=== PATIENT | male | born 1945 | race Caucasian/White ===

== ENCOUNTER 2016-12-08 19:02 | Observation (INO) | payer OTHER, MEDICARE ==
[2016-12-08] MEDS ORDERED: ASPIRIN 81 MG TABLET, CHEWABLE PO ONE (19:18)
--- NOTE | 2016-12-08 19:19 | ER Document Report ---
ED General - General Stated Complaint: LEFT ARM PAIN Mode of Arrival: Ambulatory Information source: Patient Notes: 71-year-old male history of triple bypass last year presents with complaints of chest pain shortness breath diaphoresis that started today. Patient notes yesterday he was working under a car did have some achiness in his left shoulder at that time, achiness started again today, radiate to his neck across his chest. Patient became diaphoretic sweating, took one nitroglycerin which resolved his chest pain. Patient denies any other concerns. Skin has started to smoke again instructed on smoking cessation TRAVEL OUTSIDE OF THE [place] IN LAST 30 DAYS: No - HPI Onset: This afternoon Onset/Duration: Sudden Quality of pain: Achy Severity: Mild Pain Level: 1 Associated symptoms: Body/muscle aches, Chest pain, Shortness of breath Exacerbated by: Denies Relieved by: Denies Similar symptoms previously: Yes Recently seen / treated by doctor: Yes Past Medical History - Social History Smoking Status: Current Every Day Smoker Cigarette use (# per day): Yes Chew tobacco use (# tins/day): No Smoking Education Provided: Yes - Patient counselled regarding cessation for 4 minutes Family History: Reviewed & Not Pertinent Review of Systems - Review of Systems Notes: REVIEW OF SYSTEMS: CONSTITUTIONAL : Denies fever, chills, or sweats. Denies recent illness. EENT: Denies eye, ear, throat, or mouth pain or symptoms. Denies nasal or sinus congestion or discharge. Denies throat, tongue, or mouth swelling or difficulty swallowing. CARDIOVASCULAR: Admits to chest pain rating to the arm pain. RESPIRATORY: Admits to shortness of breath GASTROINTESTINAL: Denies abdominal pain or distention. Denies nausea, vomiting , or diarrhea. Denies blood in vomitus, stools, or per rectum. Denies black, tarry stools. Denies constipation. GENITOURINARY: Denies difficulty urinating, painful urination, burning, frequency, blood in urine, or discharge. MUSCULOSKELETAL: Denies back or neck pain or stiffness. Denies joint pain or swelling. SKIN: Denies rash, lesions or sores. HEMATOLOGIC : Denies easy bruising or bleeding. LYMPHATIC: Denies swollen, enlarged glands. NEUROLOGICAL: Denies confusion or altered mental status. Denies passing out or loss of consciousness. Denies dizziness or lightheadedness. Denies headache. Denies weakness or paralysis or loss of use of either side. Denies problems with gait or speech. Denies sensory loss, numbness, or tingling. Denies seizures. PSYCHIATRIC: Denies anxiety or stress. Denies depression, suicidal ideation, or homicidal ideation. ALL OTHER SYSTEMS REVIEWED AND NEGATIVE. Dictation was performed using [employer] voice recognition software PHYSICAL EXAMINATION: GENERAL: Well-appearing, well-nourished and in no acute distress. HEAD: Atraumatic, normocephalic. EYES: Pupils equal round and reactive to light, extraocular movements intact, sclera anicteric, conjunctiva are normal. ENT: Nares patent, oropharynx clear without exudates. Moist mucous membranes. NECK: Normal range of motion, supple without lymphadenopathy LUNGS: Breath sounds clear to auscultation bilaterally and equal. No wheezes rales or rhonchi. HEART: Regular rate and rhythm without murmurs ABDOMEN: Soft, nontender, nondistended abdomen. No guarding, no rebound. No masses appreciated. Musculoskeletal: Normal range of motion, no pitting or edema. No cyanosis. NEUROLOGICAL: Cranial nerves grossly intact. Normal speech, normal gait. Normal sensory, motor exams PSYCH: Normal mood, normal affect. SKIN: Warm, Dry, normal turgor, no rashes or lesions noted. Physical Exam - Vital signs Vitals: Pulse Ox 100 12/08/16 19:18 Course - Re-evaluation Re-evalutation: 12/08/16 23:03 Patient notes a history of chronic kidney disease, EKG does note some peaked T waves with some inverted T wave in V2, Vladimir had a cardiac enzymes were negative , Dr. Grayson requests a second set of cardiac enzymes prior to admission - Vital Signs Vital signs: Temp Pulse Resp BP Pulse Ox 97.7 F 55 L 15 144/89 H 100 12/08/16 20:37 12/08/16 20:37 12/08/16 20:37 12/08/16 20:37 12/08/16 20:37 - Laboratory Result Diagrams: 12/08/16 20:30 12/08/16 20:30 Laboratory results interpreted by me: 12/08/16 12/08/16 20:30 20:30 RDW 14.2 H BUN 49 H Creatinine 2.36 H Est GFR ( Amer) 33 L Est GFR (Non-Af Amer) 28 L Total Protein 8.6 H - EKG Interpretation by Me EKG shows normal: Sinus rhythm, [place], Intervals, QRS Complexes, ST-T Waves - Peaked T waves in V3 through V6 and inverted T wave in V2 When compared to previous EKG there are: Previous EKG unavailable, Other Discharge - Discharge Clinical Impression: Chest pain Qualifiers: Chest pain type: unspecified Qualified Code(s): R07.9 - Chest pain, unspecified Disposition: ADMITTED OBSERVATION Admitting Provider: Hospitalist Unit Admitted: Telemetry
--- NOTE | 2016-12-08 19:26 | EKG REPORT ---
SEVERITY:- BORDERLINE ECG - SINUS RHYTHM PROBABLE LEFT ATRIAL ABNORMALITY : Confirmed by: Kirby Topete 08-Dec-2016 19:26:01
[2016-12-08 20:45] LABS: ABSOLUTE BASOPHILS # (AUTO) 0.1 10^3/uL (0.0-0.2); ABSOLUTE EOSINOPHILS # (AUTO) 0.2 10^3/uL (0.0-0.6); ABSOLUTE LYMPHOCYTES (AUTO) 1.5 10^3/uL (0.5-4.7); ABSOLUTE MONOCYTES (AUTO) 0.6 10^3/uL (0.1-1.4); ABSOLUTE NEUT (AUTO) 7.3 10^3/uL (1.7-8.2); BASOPHILS % (AUTO) 0.6 % (0-2); EOSINOPHILS % (AUTO) 1.6 % (0-6); HEMATOCRIT 40.6 % (37.9-51.0); HEMOGLOBIN 13.5 g/dL (13.5-17.0); HGB HCT DIFFERENCE -0.1; LYMPHOCYTES % (AUTO) 15.8 % (13-45); MEAN CORPUSCULAR HEMOGLOBIN 29.3 pg (27.0-33.4); MEAN CORPUSCULAR HGB CONC 33.2 g/dL (32.0-36.0); MEAN CORPUSCULAR VOLUME 88 fl (80-97); MONOCYTES % (AUTO) 5.9 % (3-13); RED BLOOD COUNT 4.61 10^6/uL (4.35-5.55); RED CELL DISTRIBUTION WIDTH 14.2 % (11.5-14.0); SEGMENTED NEUTROPHILS % (AUTO) 76.1 % (42-78); WHITE BLOOD COUNT 9.5 10^3/uL (4.0-10.5)
[2016-12-08 21:01] LABS: ALANINE AMINOTRANSFERASE 25 U/L (21-72); ALBUMIN 4.8 g/dL (3.5-5.0); ALKALINE PHOSPHATASE 73 U/L (38-126); ANION GAP 14 (5-19); ASPARTATE AMINO TRANSFERASE 22 U/L (17-59); BILIRUBIN,TOTAL 0.6 mg/dL (0.2-1.3); BLOOD UREA NITROGEN 49 mg/dL (7-20); CALCIUM 9.8 mg/dL (8.4-10.2); CARBON DIOXIDE 24 mmol/L (22-30); CHLORIDE 104 mmol/L (98-107); CREATINE KINASE 117 U/L (55-170); CREATININE RESULT 2.36 mg/dL (0.52-1.25); GLUCOSE 97 mg/dL (75-110); POTASSIUM 4.8 mmol/L (3.6-5.0); SODIUM 142.4 mmol/L (137-145); TOTAL PROTEIN 8.6 g/dL (6.3-8.2)
[2016-12-08 21:13] LABS: CREATINE KINASE MB 2.35 ng/mL (<4.55); TROPONIN I 0.027 ng/mL
[2016-12-08] MEDS ORDERED: BENAZEPRIL HCL 20 MG TABLET PO ONE (23:00)
[2016-12-08] MEDS ORDERED: DIAZEPAM 5 MG TABLET PO PRN (23:34)
[2016-12-08] MEDS ORDERED: MORPHINE SULFATE 10 MG/ML INJ IV PRN (23:34)
[2016-12-08] MEDS ORDERED: NITROGLYCERIN 0.4 MG/TAB 25 TAB/BOTTLE SL PRN (23:34)
[2016-12-08] MEDS ORDERED: ATORVASTATIN CALCIUM 80 MG TABLET PO ONE (23:45)
[2016-12-09] MEDS ORDERED: BENAZEPRIL HCL 20 MG TABLET ONE (00:09)
[2016-12-09 05:07] LABS: ABSOLUTE EOSINOPHILS # (AUTO) 0.2 10^3/uL (0.0-0.6); ABSOLUTE LYMPHOCYTES (AUTO) 2.6 10^3/uL (0.5-4.7); ABSOLUTE MONOCYTES (AUTO) 0.5 10^3/uL (0.1-1.4); BASOPHILS % (AUTO) 0.7 % (0-2); EOSINOPHILS % (AUTO) 2.3 % (0-6); HEMOGLOBIN 13.3 g/dL (13.5-17.0); HGB HCT DIFFERENCE -0.1; LYMPHOCYTES % (AUTO) 35.5 % (13-45); MEAN CORPUSCULAR HEMOGLOBIN 29.5 pg (27.0-33.4); MEAN CORPUSCULAR HGB CONC 33.3 g/dL (32.0-36.0); MEAN CORPUSCULAR VOLUME 89 fl (80-97); MONOCYTES % (AUTO) 6.6 % (3-13); RED CELL DISTRIBUTION WIDTH 14.4 % (11.5-14.0); SEGMENTED NEUTROPHILS % (AUTO) 54.9 % (42-78); WHITE BLOOD COUNT 7.3 10^3/uL (4.0-10.5)
[2016-12-09 05:24] LABS: ANION GAP 12 (5-19); BLOOD UREA NITROGEN 45 mg/dL (7-20); CALCIUM 9.7 mg/dL (8.4-10.2); CARBON DIOXIDE 25 mmol/L (22-30); CHLORIDE 103 mmol/L (98-107); CHOLESTEROL 177.59 mg/dL (0-200); CREATINE KINASE 104 U/L (55-170); CREATININE RESULT 2.07 mg/dL (0.52-1.25); Direct HDL 40 mg/dL (>40); GLUCOSE 86 mg/dL (75-110); POTASSIUM 4.3 mmol/L (3.6-5.0); SODIUM 140.4 mmol/L (137-145); TRIGLYCERIDES 125 mg/dL (<150)
[2016-12-09 05:40] LABS: DIRECT LDL 105 mg/dL (<100)
[2016-12-09 05:44] LABS: CREATINE KINASE MB 2.46 ng/mL (<4.55); TROPONIN I 0.083 ng/mL
--- NOTE | 2016-12-09 06:14 | PDOC H&P ---
History of Present Illness Admission Date/PCP: 12/08/16 23:34 Patient complains of: Chest pain History of Present Illness: PADMINI GHOSH is a 71 year old male with a past medical history of coronary artery disease status post three-vessel bypass grafting approximately 14 months ago, persistent tobacco dependence, stage 3 chronic kidney disease and hypertension. He been in his usual state of health until approximately 48 hours prior to presentation developing chest pain nausea after exertion while working to repair a car, symptoms resolved after approximately an hour however had a second episode of chest pain 6 hours prior to presentation that was increased intensity 4-5 retrosternal and left shoulder as well as left arm associated with nausea and diaphoresis. In the emergency room he has an unremarkable workup and is pain-free and referred to the hospitalist for admission. Past Medical History Cardiac Medical History: Reports: Hypertension Pulmonary Medical History: Reports: Chronic Obstructive Pulmonary Disease (COPD) Renal/ Medical History: Reports: Chronic Kidney Disease Psychiatric Medical History: Reports: Tobacco Dependency Past Surgical History Past Surgical History: Reports: Coronary Artery Bypass Graft Social History Smoking Status: Current Every Day Smoker Cigarettes Packs Per Day: 1 Frequency of Alcohol Use: None Drugs: None - Advance Directive Resuscitation Status: Full Code Family History Family History: CAD, Hypertension Parental Family History Reviewed: Yes Children Family History Reviewed: Yes Sibling(s) Family History Reviewed.: Yes Review of Systems Constitutional: ABSENT: chills, fever(s), headache(s), weight gain, weight loss Eyes: ABSENT: visual disturbances Ears: ABSENT: hearing changes Cardiovascular: ABSENT: chest pain, dyspnea on exertion, edema, orthropnea, palpitations Respiratory: ABSENT: cough, hemoptysis Gastrointestinal: ABSENT: abdominal pain, constipation, diarrhea, hematemesis, hematochezia, nausea, vomiting Genitourinary: ABSENT: dysuria, hematuria Musculoskeletal: ABSENT: joint swelling Integumentary: ABSENT: rash, wounds Neurological: ABSENT: abnormal gait, abnormal speech, confusion, dizziness, focal weakness, syncope Psychiatric: ABSENT: anxiety, depression, homidical ideation, suicidal ideation Endocrine: ABSENT: cold intolerance, heat intolerance, polydipsia, polyuria Hematologic/Lymphatic: ABSENT: easy bleeding, easy bruising Physical Exam Vital Signs: Temp Pulse Resp BP Pulse Ox 97.7 F 58 L 13 148/82 H 97 12/09/16 03:51 12/09/16 03:51 12/09/16 03:51 12/09/16 03:51 12/09/16 03:51 General appearance: PRESENT: no acute distress, well-developed, well-nourished Head exam: PRESENT: atraumatic, normocephalic Eye exam: PRESENT: conjunctiva pink, EOMI, PERRLA. ABSENT: scleral icterus Ear exam: PRESENT: normal external ear exam Mouth exam: PRESENT: moist, tongue midline Neck exam: ABSENT: carotid bruit, JVD, lymphadenopathy, thyromegaly Respiratory exam: PRESENT: crackles, prolonged expiratory phas, symmetrical, unlabored. ABSENT: accessory muscle use, chest wall tenderness, rales, rhonchi , wheezes Cardiovascular exam: PRESENT: RRR. ABSENT: diastolic murmur, rubs, systolic murmur Pulses: PRESENT: normal dorsalis pedis pul Vascular exam: PRESENT: normal capillary refill GI/Abdominal exam: PRESENT: normal bowel sounds, soft. ABSENT: distended, guarding, mass, organolmegaly, rebound, tenderness Rectal exam: PRESENT: deferred Extremities exam: PRESENT: full ROM. ABSENT: calf tenderness, clubbing, pedal edema Neurological exam: PRESENT: alert, awake, oriented to person, oriented to place , oriented to time, oriented to situation, CN II-XII grossly intact. ABSENT: motor sensory deficit Psychiatric exam: PRESENT: appropriate affect, normal mood. ABSENT: homicidal ideation, suicidal ideation Skin exam: PRESENT: dry, intact, warm. ABSENT: cyanosis, rash Results Laboratory Results: 12/09/16 04:28 12/09/16 04:28 12/09/16 12/09/16 04:28 04:28 WBC 7.3 RBC 4.50 Hgb 13.3 L Hct 40.0 MCV 89 MCH 29.5 MCHC 33.3 RDW 14.4 H Plt Count 218 Seg Neutrophils % 54.9 Lymphocytes % 35.5 Monocytes % 6.6 Eosinophils % 2.3 Basophils % 0.7 Absolute Neutrophils 4.0 Absolute Lymphocytes 2.6 Absolute Monocytes 0.5 Absolute Eosinophils 0.2 Absolute Basophils 0.0 Sodium 140.4 Potassium 4.3 Chloride 103 Carbon Dioxide 25 Anion Gap 12 BUN 45 H Creatinine 2.07 H Est GFR ( Amer) 39 L Est GFR (Non-Af Amer) 32 L Glucose 86 Calcium 9.7 Triglycerides 125 Cholesterol 177.59 LDL Cholesterol Direct 105 H VLDL Cholesterol 25.0 HDL Cholesterol 40 12/09/16 12/09/16 04:27 04:28 Creatine Kinase 104 CK-MB (CK-2) 2.46 Troponin I 0.083 Impressions: Chest X-Ray 12/08/16 19:18 IMPRESSION: COPD. NO ACUTE RADIOGRAPHIC FINDING IN THE CHEST. Assessment & Plan - Diagnosis (1) Chest pain Qualifiers: Chest pain type: unspecified Qualified Code(s): R07.9 - Chest pain, unspecified Is this a current diagnosis for this admission?: YesPlan: Patient's history strongly suggests unstable angina evolving over the last 48 hours, kidded by his history fortunately he is pain-free I'll observe him on a monitored bed with a chest pain care set and symptomatically management reevaluation of cardiac enzymes and risk factors for coronary artery disease, obtaining a Cardiolite stress test if rules out (2) Coronary artery disease Is this a current diagnosis for this admission?: YesPlan: Please see #1 (3) Stage III chronic kidney disease Is this a current diagnosis for this admission?: YesPlan: Avoid nephrotoxic meds and doses reevaluation of chemistry (4) Tobacco dependence Is this a current diagnosis for this admission?: YesPlan: Tobacco Dependence patient received tobacco cessation counseling and offered nicotine replacement options - Time Time Spent: 50 to 70 Minutes
[2016-12-09] MEDS ORDERED: METHADONE HCL 10 MG TABLET PO ONE (09:45)
[2016-12-09] MEDS ORDERED: BENAZEPRIL HCL 20 MG TABLET PO SCH (10:00)
[2016-12-09 11:52] LABS: CREATINE KINASE MB 2.66 ng/mL (<4.55); TROPONIN I 0.075 ng/mL
[2016-12-09 13:51] VITALS: BP 133/81
[2016-12-09] MEDS ORDERED: METHADONE HCL 10 MG TABLET PO SCH (15:00)
--- NOTE | 2016-12-09 16:39 | PDOC DISCHARGE SUMMARY ---
General - Admit/Disc Date/PCP Admission Date/Primary Care Provider: 12/08/16 23:34 Discharge Date: 12/09/16 - Discharge Diagnosis (1) Chest pain Is this a current diagnosis for this admission?: YesSummary: Pain ruled out for acute coronary syndrome. Most likely musculoskeletal. Will follow up with his hosiery mender if it reoccurs (2) Coronary artery disease Is this a current diagnosis for this admission?: YesSummary: Continue current medications (3) Stage III chronic kidney disease Is this a current diagnosis for this admission?: YesSummary: Currently stable (4) Tobacco dependence Is this a current diagnosis for this admission?: YesSummary: Counseled - Additional Information Resuscitation Status: Full Code Discharge Diet: Cardiac Discharge Activity: Activity As Tolerated, Balance Activity w/Rest Home Medications: Aspirin [Aspirin EC] 81 mg PO DAILY 12/09/16 Bupropion HCl [Wellbutrin 100 mg Tablet] 100 mg PO Q12 12/09/16 Clopidogrel Bisulfate [Plavix 75 mg Tablet] 75 mg PO DAILY 12/09/16 Diltiazem HCl [Diltiazem ER] 120 mg PO DAILY 12/09/16 Levothyroxine Sodium [Synthroid] 50 mcg PO DAILY 12/09/16 Methadone HCl [Dolophine 10 mg Tablet] 10 mg PO Q6 12/09/16 Metoprolol Tartrate [Lopressor 50 mg Tablet] 25 mg PO Q12 12/09/16 Omeprazole 20 mg PO DAILY 12/09/16 History of Present Illness Patient complains of: Left arm and shoulder pain History of Present Illness: PADMINI GHOSH is a 71 year old male with past medical history of coronary artery disease status post three-vessel bypass grafting presently 4 months ago, persistent tobacco dependence, stage III chronic kidney disease and hypertension. He presented to [facility] after he began having left arm pain and heaviness radiated up into his shoulders after he was working on a car for several hours underneath it. States it was not his typical anginal pain he had prior to his bypass surgery. He did have some diaphoresis and nausea associated with the pain. He states the pain eventually subsided somewhat. He then took 1 sublingual nitroglycerin with complete resolution of pain prior to his arrival here. EKG and initial troponin are negative for ischemia. He was referred to the hospitalist service for admission. Hospital Course Hospital Course: Patient was admitted to telemetry and observed. He had serial troponins drawn which were all negative for acute coronary syndrome. He has had no further episodes of pain. We are unable to do a stress test today due to renovations to our stress lab. Patient does not wish to stay another night. We therefore feel safe for him to be discharged and follow-up should he have recurrence of his symptoms with his hosiery mender. He has had no typical angina pains with exertion since his surgery. Physical Exam Vital Signs: Temp Pulse Resp BP Pulse Ox 97.7 F 58 L 9 L 133/81 H 97 12/09/16 03:51 12/09/16 03:51 12/09/16 13:03 12/09/16 13:03 12/09/16 13:03 Intake & Output 12/08/16 12/09/16 12/10/16 06:59 06:59 06:59 Output Total 400 Balance -400 Weight 84.822 kg General appearance: PRESENT: no acute distress, well-developed, well-nourished Head exam: PRESENT: atraumatic, normocephalic Eye exam: PRESENT: conjunctiva pink, EOMI, PERRLA. ABSENT: scleral icterus Ear exam: PRESENT: normal external ear exam Mouth exam: PRESENT: moist, tongue midline Neck exam: ABSENT: carotid bruit, JVD, lymphadenopathy, thyromegaly Respiratory exam: PRESENT: clear to auscultation jaime. ABSENT: rales, rhonchi, wheezes Cardiovascular exam: PRESENT: RRR. ABSENT: diastolic murmur, rubs, systolic murmur Pulses: PRESENT: normal dorsalis pedis pul Vascular exam: PRESENT: normal capillary refill GI/Abdominal exam: PRESENT: normal bowel sounds, soft. ABSENT: distended, guarding, mass, organolmegaly, rebound, tenderness Rectal exam: PRESENT: deferred Extremities exam: PRESENT: full ROM. ABSENT: calf tenderness, clubbing, pedal edema Neurological exam: PRESENT: alert, awake, oriented to person, oriented to place , oriented to time, oriented to situation, CN II-XII grossly intact. ABSENT: motor sensory deficit Psychiatric exam: PRESENT: appropriate affect, normal mood. ABSENT: homicidal ideation, suicidal ideation Skin exam: PRESENT: dry, intact, warm. ABSENT: cyanosis, rash Results Laboratory Results: 12/09/16 04:28 12/09/16 04:28 12/09/16 12/09/16 04:28 04:28 WBC 7.3 RBC 4.50 Hgb 13.3 L Hct 40.0 MCV 89 MCH 29.5 MCHC 33.3 RDW 14.4 H Plt Count 218 Seg Neutrophils % 54.9 Lymphocytes % 35.5 Monocytes % 6.6 Eosinophils % 2.3 Basophils % 0.7 Absolute Neutrophils 4.0 Absolute Lymphocytes 2.6 Absolute Monocytes 0.5 Absolute Eosinophils 0.2 Absolute Basophils 0.0 Sodium 140.4 Potassium 4.3 Chloride 103 Carbon Dioxide 25 Anion Gap 12 BUN 45 H Creatinine 2.07 H Est GFR ( Amer) 39 L Est GFR (Non-Af Amer) 32 L Glucose 86 Calcium 9.7 Triglycerides 125 Cholesterol 177.59 LDL Cholesterol Direct 105 H VLDL Cholesterol 25.0 HDL Cholesterol 40 12/09/16 12/09/16 12/09/16 04:27 04:28 10:43 Creatine Kinase 104 CK-MB (CK-2) 2.46 2.66 Troponin I 0.083 0.075 Impressions: Chest X-Ray 12/08/16 19:18 IMPRESSION: COPD. NO ACUTE RADIOGRAPHIC FINDING IN THE CHEST. Qualifiers PATEINT BEING DISCHARGED WITH ANY OF THE FOLLOWING DIAGNOSIS?: No Plan Discharge Plan: Home with sister Time Spent: Less than 30 Minutes
[2016-12-09] MEDS ORDERED: ATORVASTATIN CALCIUM 80 MG TABLET PO SCH (22:00)
== END 2016-12-09 13:30 | disposition home or self-care (01) ==
LOC: ER 19:02 → EH 22:26 → UNDOADMOB 22:26 → EH 23:34
PROVIDERS: ADMIT Internal Medicine; ATTEND Internal Medicine
DX: R07.9 Chest pain, unspecified (principal); I25.10 Atherosclerotic heart disease of native coronary artery without angina pectoris; Z95.1 Presence of aortocoronary bypass graft; I12.9 Hypertensive chronic kidney disease with stage 1 through stage 4 chronic kidney disease, or unspecified chronic kidney disease; N18.3 Chronic kidney disease, stage 3 (moderate); J44.9 Chronic obstructive pulmonary disease, unspecified; Z79.82 Long term (current) use of aspirin; Z79.899 Other long term (current) drug therapy; F17.210 Nicotine dependence, cigarettes, uncomplicated; Z82.49 Family history of ischemic heart disease and other diseases of the circulatory system
CPT/HCPCS: 93005; 99285; 36415 ×2; 82553 ×2; 82550 ×2; 85025 ×2; 80048; 80053; 84484 ×2; 80061; 71010; 93010; G0378; J3490

== ENCOUNTER → 2018-04-06 | Outpatient (CLI) | payer OTHER, MEDICARE ==
--- NOTE | 2018-04-06 19:59 | EKG REPORT ---
SEVERITY:- NORMAL ECG - SINUS RHYTHM : Confirmed by: Louise Stokes MD 06-Apr-2018 19:58:38
== END ==
LOC: OD 12:13
PROVIDERS: ATTEND Physician Assistant
DX: G89.4 Chronic pain syndrome (principal); Z79.891 Long term (current) use of opiate analgesic
CPT/HCPCS: 36415; 80358; 93005; 93010

== ENCOUNTER 2020-02-23 09:25 | Observation (INO) | payer MEDICARE, OTHER ==
--- NOTE | 2020-02-23 09:35 | ER Document Report ---
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 He states he used last Friday night. According to the patient he had meth in his pocket but he is not using it. He is alert oriented respirations regular nonlabored speaking in full sentences. Patient is accompanied by police and in handcuffs. Patient is very agitated. He is cooperative answering questions. He does have a history of CHF blood pressure and peripheral neuropathy. He states he also has some kidney failure but not complete. He has had a carotid endarterectomy, 2 hernia surgeries, and a triple bypass and CHF. I have greeted and performed a rapid initial assessment of this patient. A comprehensive ED assessment and evaluation of the patient, analysis of test results and completion of medical decision making process will be conducted by an additional ED providers. TRAVEL OUTSIDE OF THE [place] IN LAST 30 DAYS: No - Related Data Allergies/Adverse Reactions: No Known Allergies Allergy (Verified 02/23/20 09:29) Past Medical History - Past Medical History Cardiac Medical History: Reports: Hx Hypertension Pulmonary Medical History: Reports: Hx COPD Past Surgical History: Reports: Hx Coronary Artery Bypass Graft Doctor's Discharge - Discharge Referrals: CARI FUNES PA-C [Primary Care Provider] - Follow up as needed
[2020-02-23 10:51] LABS: ABSOLUTE BASOPHILS # (AUTO) 0.1 10^3/uL (0.0-0.2); ABSOLUTE EOSINOPHILS # (AUTO) 0.1 10^3/uL (0.0-0.6); ABSOLUTE LYMPHOCYTES (AUTO) 1.3 10^3/uL (0.5-4.7); ABSOLUTE MONOCYTES (AUTO) 0.5 10^3/uL (0.1-1.4); ABSOLUTE NEUT (AUTO) 5.3 10^3/uL (1.7-8.2); BASOPHILS % (AUTO) 0.8 % (0-2); EOSINOPHILS % (AUTO) 0.8 % (0-6); HEMATOCRIT 37.6 % (37.9-51.0); LYMPHOCYTES % (AUTO) 18.4 % (13-45); MEAN CORPUSCULAR HEMOGLOBIN 29.4 pg (27.0-33.4); MEAN CORPUSCULAR HGB CONC 34.5 g/dL (32.0-36.0); MEAN CORPUSCULAR VOLUME 85 fl (80-97); MONOCYTES % (AUTO) 7.5 % (3-13); PLATELET COUNT 361 10^3/uL (150-450); RED BLOOD COUNT 4.41 10^6/uL (4.35-5.55); RED CELL DISTRIBUTION WIDTH 15.4 % (11.5-14.0); SEGMENTED NEUTROPHILS % (AUTO) 72.5 % (42-78); TOTAL CELLS COUNTED % (AUTO) 100 %; WHITE BLOOD COUNT 7.3 10^3/uL (4.0-10.5)
[2020-02-23 10:58] LABS: ALBUMIN 3.3 g/dL (3.5-5.0); ALKALINE PHOSPHATASE 131 U/L (38-126); ASPARTATE AMINO TRANSFERASE 32 U/L (17-59); BILIRUBIN,TOTAL 0.8 mg/dL (0.2-1.3); BLOOD UREA NITROGEN 23 mg/dL (7-20); CALCIUM 8.7 mg/dL (8.4-10.2); GLUCOSE 116 mg/dL (75-110); POTASSIUM 3.7 mmol/L (3.6-5.0); TOTAL PROTEIN 7.3 g/dL (6.3-8.2)
[2020-02-23 10:59] LABS: ACETAMINOPHEN < 10 ug/mL (10-30); ALCOHOL < 10 mg/dL (NONE DETECTED); SALICYLATE < 1.0 mg/dL (2.0-20.0)
[2020-02-23 11:02] LABS: CARBON DIOXIDE 30 mmol/L (22-30); CHLORIDE 100 mmol/L (98-107)
[2020-02-23 11:03] LABS: ANION GAP 4 (5-19)
[2020-02-23] MEDS ORDERED: NORMAL SALINE 1000 ML 1,000 ML IV ONE (11:13)
[2020-02-23] MEDS ORDERED: ONDANSETRON HCL INJ/PF 4 MG/2 ML SDV IV ONE (11:13)
[2020-02-23] MEDS ORDERED: CLONIDINE HCL 0.1 MG TABLET PO ONE (11:13)
[2020-02-23 12:00] LABS: APPEARANCE,URINE CLEAR; BILIRUBIN,URINE NEGATIVE (NEGATIVE); COLOR,URINE YELLOW; GLUCOSE, URINE 50 mg/dL (NEGATIVE); KETONES,URINE NEGATIVE (NEGATIVE); LEUKOCYTE ESTERASE,URINE NEGATIVE (NEGATIVE); NITRITE,URINE NEGATIVE (NEGATIVE); PROTEIN,URINE >=500 mg/dL (NEGATIVE); UROBILINOGEN,URINE NEGATIVE mg/dL (<2.0)
--- NOTE | 2020-02-23 12:11 | RADIOLOGY REPORT (SQ) ---
EXAM DESCRIPTION: CHEST SINGLE VIEW IMAGES COMPLETED DATE/TIME: 02/23/2020 11:44 am REASON FOR STUDY: SOB COMPARISON: 08/14/2007 EXAM PARAMETERS: NUMBER OF VIEWS: One view. TECHNIQUE: Single frontal radiographic view of the chest acquired. RADIATION DOSE: NA LIMITATIONS: None. FINDINGS: LUNGS AND PLEURA: Emphysematous and chronic interstitial changes, stable. No focal airspa ce disease, pleural effusion or pneumothorax. MEDIASTINUM AND HILAR STRUCTURES: Stable. HEART AND VASCULAR STRUCTURES: Enlarged, stable. Evidence prior sternotomy and CABG. Mild central v ascular congestion. BONES: No acute findings. Sternotomy changes. HARDWARE: None in the chest. OTHER: No other significant finding. IMPRESSION: Stable chronic interstitial changes without evidence of acute cardiopulmonary process. Enlarged cardiac silhouette with central vascular congestion. Prior CABG. TECHNICAL DOCUMENTATION: JOB ID: [id number] [employer]- All Rights Reserved Reading location - IP/workstation name: [email or web address]
[2020-02-23 12:17] LABS: URINE AMPHETAMINES SCREEN NEGATIVE; URINE BARBITURATES SCREEN NEGATIVE; URINE BENZODIAZEPINES SCREEN NEGATIVE; URINE COCAINE SCREEN NEGATIVE; URINE MARIJUANA (THC) SCREEN NEGATIVE; URINE METHADONE SCREEN NEGATIVE; URINE PHENCYCLIDINE SCREEN NEGATIVE
[2020-02-23 12:28] LABS: TROPONIN I 0.064 ng/mL
[2020-02-23] MEDS ORDERED: METOPROLOL TARTRATE 25 MG TABLET PO ONE (12:35)
--- NOTE | 2020-02-23 13:32 | ER Document Report ---
Entered by JAN MARROQUIN SCRIBE 02/23/20 1034 Acting as scribe for:LARRY GONZALEZ DO ED General - General Chief Complaint: High Blood Pressure Stated Complaint: BLOOD PRESSURE ISSUE/DETOXING Time Seen by Provider: 02/23/20 09:31 Mode of Arrival: Wheelchair Information source: Patient Notes: This 75 year old male patient presents to the emergency department today from the [facility]dc in custody of the [facility]'s department today for complaints of hypertensive urgency along with heroin withdrawal. Patient states that he had been "clean for 30 years" from heroin until about x4 months ago, stating that he started using again after being "thrown out of pain management". Patient states that since yesterday he has been having leg cramps, nausea, "shortness of breath at night", and difficulty sleeping. He was incarcerated two days ago. Patient is supposed be taking blood pressure medication but he has not been doing so for the last several months. Patient states he does not know what medication he is supposed to be taking. Patient denies a history of alcohol abuse. TRAVEL OUTSIDE OF THE [place] IN LAST 30 DAYS: No - Related Data Allergies/Adverse Reactions: acetaminophen [From Tylenol] Allergy (Verified 02/23/20 10:30) pentazocine [From Talwin] Allergy (Verified 02/23/20 10:30) Past Medical History - General Information source: Patient, Law Enforcement - Social History Smoking Status: Current Every Day Smoker Cigarette use (# per day): Yes Chew tobacco use (# tins/day): No Drug Abuse: Heroin, Prescription drugs Lives with: Other - Incarcerated Family History: Reviewed & Not Pertinent, CAD, Hypertension Patient has suicidal ideation: No Patient has homicidal ideation: No - Past Medical History Cardiac Medical History: Reports: Hx Congestive Heart Failure, Hx Hypertension Pulmonary Medical History: Reports: Hx COPD Past Surgical History: Reports: Hx Coronary Artery Bypass Graft Review of Systems - Review of Systems Constitutional: No symptoms reported EENT: No symptoms reported Cardiovascular: See HPI, Other - elevated blood pressure Respiratory: See HPI, Short of breath Gastrointestinal: See HPI, Diarrhea, Nausea Genitourinary: No symptoms reported Male Genitourinary: No symptoms reported Musculoskeletal: See HPI, Muscle pain, Muscle stiffness Skin: No symptoms reported Hematologic/Lymphatic: No symptoms reported Neurological/Psychological: No symptoms reported -: Yes All other systems reviewed and negative Physical Exam - Vital signs Vitals: Temp Pulse Resp BP Pulse Ox 97.5 F 80 20 212/110 H 97 02/23/20 09:35 02/23/20 09:35 02/23/20 09:35 02/23/20 09:35 02/23/20 09:35 Interpretation: Hypertensive - General General appearance: Alert In distress: None Notes: Drowsy, chronically ill-appearing. Disheveled. - Respiratory Respiratory status: No respiratory distress Breath sounds: Rales - At bases, mild - Cardiovascular Rhythm: Regular Heart sounds: Normal auscultation Murmur: No - Abdominal Inspection: Normal Distension: No distension Bowel sounds: Normal Tenderness: Nontender Organomegaly: No organomegaly - Extremities General upper extremity: Normal inspection, Normal ROM General lower extremity: Normal inspection, Normal ROM - Neurological Neuro grossly intact: Yes Orientation: AAOx4 Gale Coma Scale Eye Opening: To Voice Gale Coma Scale Verbal: Oriented Hay Coma Scale Motor: Obeys Commands Gale Coma Scale Total: 14 - Psychological Associated symptoms: Normal affect, Normal mood Course - Re-evaluation Re-evalutation: 02/23/20 14:03 Patient is a 75-year-old male who is brought in for concern of opiate withdrawal, but more concerning is his blood pressure of 200s over 100s and complaints of orthopnea and dyspnea. Patient has not been taking his m edications over the past 5 to 6 months. He has a history of heart failure. BNP is elevated to 56,000 and chest x-ray consistent with vascular congestion. Patient does not have close follow-up with a primary and hesitate sending him back to fdc in the state that he is in as I feel that he will worsen. Discussed with the hospitalist will admit the patient to telemetry observation. He has been given clonidine for blood pressure and withdrawal symptoms, Zofran for nausea, and metoprolol 25 mg p.o. here in the emergency department. Patient is agreeable to this plan. Stable at the time of admission. - Vital Signs Vital signs: Temp Pulse Resp BP Pulse Ox 97.5 F 80 34 H 221/114 H 94 02/23/20 09:35 02/23/20 09:35 02/23/20 12:01 02/23/20 12:01 02/23/20 12:01 - Laboratory Result Diagrams: 02/23/20 10:27 02/23/20 10:27 Laboratory results interpreted by me: 02/23/20 02/23/20 02/23/20 10:27 10:27 10:27 Hgb 13.0 L Hct 37.6 L RDW 15.4 H Sodium 133.6 L Anion Gap 4 L BUN 23 H Creatinine 1.58 H Est GFR ( Amer) 52 L Est GFR (MDRD) Non-Af 43 L Glucose 116 H Alkaline Phosphatase 131 H NT-Pro-B Natriuret Pep 06126 H Albumin 3.3 L Urine Protein Urine Glucose (UA) Urine Blood Salicylates < 1.0 L Acetaminophen < 10 L 02/23/20 11:15 Hgb Hct RDW Sodium Anion Gap BUN Creatinine Est GFR ( Amer) Est GFR (MDRD) Non-Af Glucose Alkaline Phosphatase NT-Pro-B Natriuret Pep Albumin Urine Protein >=500 H Urine Glucose (UA) 50 H Urine Blood SMALL H Salicylates Acetaminophen Discharge - Discharge Clinical Impression: CHF exacerbation Qualifiers: Heart failure type: unspecified Qualified Code(s): I50.9 - Heart failure, unspecified Condition: Stable Disposition: ADMITTED OBSERVATION Admitting Provider: Torri (Hospitalist) Unit Admitted: Telemetry I personally performed the services described in the documentation, reviewed and edited the documentation which was dictated to the scribe in my presence, and it accurately records my words and actions.
[2020-02-23] MEDS ORDERED: IPRATROPIUM/ALBUTEROL 0.5-2.5 MG/3 ML AMPUL NEB PRN (14:37)
[2020-02-23] MEDS ORDERED: ONDANSETRON HCL INJ/PF 4 MG/2 ML SDV IV PRN (14:37)
[2020-02-23] MEDS ORDERED: ONDANSETRON 4 MG TAB.RAPDIS PO PRN (14:37)
--- NOTE | 2020-02-23 16:01 | PDOC H&P ---
History of Present Illness Admission Date/PCP: 02/23/20 14:00 History of Present Illness: PADMINI GHOSH is a 75 year old male with past medical history significant for CHF, CKD 3B, HTN, history of [place] status post CABG x3, tobacco abuse, heroin abuse last used Friday who presents with 1 day history of shortness of breath and generalized weakness, found to have markedly elevated blood pressures in the 240s over 100s at the fci and was sent to ED for further evaluation. He denies any chest pain, visual changes, abdominal pain, nausea/vomiting. He states he has stopped taking his medications for many months but he recently had a new PCP appointment that was canceled due to coronavirus. He was arrested 2 days ago for heroin use/possession among other things. He states he is also had a right carotid endarterectomy in the past and notes that he does not take Plavix anymore. BNP on admission is 53,000, chest x-ray showed central vascular congestion. For some reason he was given a 1 L normal saline bolus in the ER which probably made his blood pressure worse. He was then given a dose of Lasix. He is a very poor historian when it comes to his medications and does not remember the specific agents or the dose for the most part. Admitted to observation. Can probably go back to fci tomorrow. Patient is a long-term heroin addict who was fired by his methadone clinic last year due to his use of a fentanyl patch given to him by a friend. He last used heroin 2 days prior to admission and he would likely benefit from going back to the methadone clinic for treatment. Past Medical History Cardiac Medical History: Reports: Congestive Heart Failure, Myocardial Infarction, Hypertension Pulmonary Medical History: Reports: Chronic Obstructive Pulmonary Disease (COPD) Endocrine Medical History: Reports: Hypothyroidism Renal/ Medical History: Reports: Chronic Kidney Disease Psychiatric Medical History: Reports: Substance Abuse, Tobacco Dependency Past Surgical History Past Surgical History: Reports: Cardiac Catheterization, Carotid Endarterectomy, Coronary Artery Bypass Graft, Herniorrhaphy Social History Information Source: Patient, Emergency Med Personnel, [facility] Records Lives with: Alone, Other - Incarcerated Smoking Status: Current Every Day Smoker Electronic Cigarette use?: No Frequency of Alcohol Use: None Drugs: Heroin Hx Prescription Drug Abuse: Yes - Advance Directive Resuscitation Status: Full Code Surrogate healthcare decision maker:: Sister: Kristi Lazaro Family History Family History: Reviewed & Not Pertinent, CAD, Hypertension, Malignancy Parental Family History Reviewed: Yes Children Family History Reviewed: Yes Sibling(s) Family History Reviewed.: Yes Medication/Allergy Home Medications: Albuterol Sulfate [Proair Hfa Inhalation Aerosol 8.5 gm Mdi] 1 puff IH Q4HP PRN 02/23/20 Aspirin [Ecotrin 81 mg EC Tablet] 81 mg PO DAILY 02/23/20 Clonidine HCl [Catapres 0.1 mg Tablet] 0.1 mg PO BIDP PRN 02/23/20 Clopidogrel Bisulfate [Plavix 75 mg Tablet] 75 mg PO DAILY 02/23/20 Diltiazem HCl [Cardizem Cd 120 mg Capsule] 120 mg PO DAILY 02/23/20 Furosemide [Lasix 20 mg Tablet] 20 mg PO QAM 02/23/20 Levothyroxine Sodium [Synthroid 0.05 mg Tablet] 0.05 mg PO Q6AM 02/23/20 Metoprolol Tartrate [Lopressor 25 mg Tablet] 25 mg PO Q12 02/23/20 Omeprazole Magnesium [Prilosec Otc] 20 mg PO DAILY 02/23/20 Allergies/Adverse Reactions: acetaminophen [From Tylenol] Allergy (Verified 02/23/20 10:30) pentazocine [From Talwin] Allergy (Verified 02/23/20 10:30) Review of Systems All systems: reviewed and no additional remarkable complaints except as stated - Per HPI, otherwise negative Physical Exam Vital Signs: Temp Pulse Resp BP Pulse Ox 97.5 F 80 28 H 188/91 H 98 02/23/20 09:35 02/23/20 09:35 02/23/20 15:01 02/23/20 15:01 02/23/20 15:01 Intake & Output 02/22/20 02/23/20 02/24/20 06:59 06:59 06:59 Intake Total 1000 Balance 1000 Weight 56.8 kg General appearance: PRESENT: no acute distress, well-developed, well-nourished Head exam: PRESENT: atraumatic, normocephalic Eye exam: PRESENT: conjunctiva pink Mouth exam: PRESENT: moist Teeth exam: PRESENT: edentulous Respiratory exam: PRESENT: clear to auscultation jaime. ABSENT: rales, rhonchi, wheezes Cardiovascular exam: PRESENT: RRR. ABSENT: diastolic murmur, rubs, systolic murmur GI/Abdominal exam: PRESENT: normal bowel sounds, soft. ABSENT: distended, guarding, mass, organolmegaly, rebound, tenderness Rectal exam: PRESENT: deferred Extremities exam: ABSENT: pedal edema Musculoskeletal exam: PRESENT: ambulatory Neurological exam: PRESENT: alert, awake, oriented to person, oriented to place, oriented to time, oriented to situation Psychiatric exam: PRESENT: appropriate affect, normal mood Skin exam: PRESENT: dry, intact, warm Results Laboratory Results: 02/23/20 10:27 02/23/20 10:27 02/23/20 02/23/20 02/23/20 10:27 10:27 10:27 WBC 7.3 RBC 4.41 Hgb 13.0 L Hct 37.6 L MCV 85 MCH 29.4 MCHC 34.5 RDW 15.4 H Plt Count 361 Seg Neutrophils % 72.5 Sodium 133.6 L Potassium 3.7 Chloride 100 Carbon Dioxide 30 Anion Gap 4 L BUN 23 H Creatinine 1.58 H Est GFR ( Amer) 52 L Glucose 116 H Calcium 8.7 Total Bilirubin 0.8 AST 32 Alkaline Phosphatase 131 H Total Protein 7.3 Albumin 3.3 L TSH 1.55 Urine Color Urine Appearance Urine pH Ur Specific [place] Urine Protein Urine Glucose (UA) Urine Ketones Urine Blood Urine Nitrite Ur Leukocyte Esterase Urine WBC (Auto) Urine RBC (Auto) 02/23/20 11:15 WBC RBC Hgb Hct MCV MCH MCHC RDW Plt Count Seg Neutrophils % Sodium Potassium Chloride Carbon Dioxide Anion Gap BUN Creatinine Est GFR ( Amer) Glucose Calcium Total Bilirubin AST Alkaline Phosphatase Total Protein Albumin TSH Urine Color YELLOW Urine Appearance CLEAR Urine pH 7.0 Ur Specific [place] 1.010 Urine Protein >=500 H Urine Glucose (UA) 50 H Urine Ketones NEGATIVE Urine Blood SMALL H Urine Nitrite NEGATIVE Ur Leukocyte Esterase NEGATIVE Urine WBC (Auto) 0 Urine RBC (Auto) 2 02/23/20 10:27 Troponin I 0.064 NT-Pro-B Natriuret Pep 89334 H Impressions: Chest X-Ray 02/23/20 00:00 IMPRESSION: Stable chronic interstitial changes without evidence of acute cardiopulmonary process. Enlarged cardiac silhouette with central vascular congestion. Prior CABG. Assessment and Plan - Diagnosis (1) CHF exacerbation Qualifiers: Heart failure type: unspecified Qualified Code(s): I50.9 - Heart failure, unspecified Is this a current diagnosis for this admission?: Yes Plan: Not clinically volume overloaded on exam, short of breath on admission Chest x-ray showed central vascular congestion BNP 53,000, troponin minimally elevated likely due to CKD, denies chest pain Echocardiogram ordered IV Lasix Will need to be started on beta-poonam, YARI inhibitor, aspirin, statin prior to discharge (2) Hypertensive urgency Is this a current diagnosis for this admission?: Yes Plan: Off all medications for many months We will restart home medications gradually to achieve a controlled drop in blood pressure over the next 24 hours Restarted Lasix, diltiazem, metoprolol (3) Heroin abuse Is this a current diagnosis for this admission?: Yes Plan: Arrested by police for drug possession and use and he is currently incarcerated Last time using heroin was 2 to 3 days [employer] Not in acute withdrawal Counseled on cessation, needs referral back to methadone clinic outpatient (4) Carotid artery stenosis Is this a current diagnosis for this admission?: Yes Plan: Status post right carotid endarterectomy at the same time he had his CABG Aspirin restarted Per patient he does not take Plavix anymore as he was taken off it by 1 of his physicians Has not seen vascular surgery in quite a while, needs follow-up with them o utpatient May want to consider looking for renal artery stenosis if blood pressures refractory to multiple medications at high doses (5) COPD (chronic obstructive pulmonary disease) Is this a current diagnosis for this admission?: Yes Plan: Not in exacerbation Counseled on tobacco cessation As needed gregorio tay (6) Stage III chronic kidney disease Is this a current diagnosis for this admission?: Yes Plan: Baseline creatinine approximately 1.5-2, already at baseline on admission (7) Protein-calorie malnutrition, severe Is this a current diagnosis for this admission?: Yes Plan: Likely due to longstanding drug abuse (8) History of coronary artery bypass graft x 3 Is this a current diagnosis for this admission?: Yes (9) Hypertension Is this a current diagnosis for this admission?: Yes (10) Tobacco abuse Is this a current diagnosis for this admission?: Yes - Time Time Spent with patient: 35 or more minutes Medications reviewed and adjusted accordingly: Yes Anticipated discharge: Other - [facility] Within: within 48 hours
--- NOTE | 2020-02-23 16:02 | ADVANCED CARE ---
- Diagnosis (1) CHF exacerbation Diagnosis Current: Yes (2) Hypertensive urgency Diagnosis Current: Yes (3) Heroin abuse Diagnosis Current: Yes (4) Carotid artery stenosis Diagnosis Current: Yes (5) COPD (chronic obstructive pulmonary disease) Diagnosis Current: Yes (6) Stage III chronic kidney disease Diagnosis Current: Yes (7) Protein-calorie malnutrition, severe Diagnosis Current: Yes (8) History of coronary artery bypass graft x 3 Diagnosis Current: Yes (9) Hypertension Diagnosis Current: Yes (10) Tobacco abuse Diagnosis Current: Yes Attendance: Patient, officer Resuscitation Status: Full Code Discussion: All aspects of CODE STATUS discussed including intubation/cardioversion/chest compressions and patient states he would like to be full code. He designates his Sister Kristi Lazaro as his M POA. Time Spent: 17 minutes
[2020-02-23] MEDS: ENOXAPARIN SODIUM INJ 40 MG/0.4 ML DISP.SYRIN SUBCUT SCH (16:58)
--- NOTE | 2020-02-23 18:46 | EKG REPORT ---
SEVERITY:- ABNORMAL ECG - SINUS RHYTHM MULTIFORM VENTRICULAR PREMATURE COMPLEXES ST DEPRESSION, CONSIDER ISCHEMIA, INF LEADS PROLONGED QT INTERVAL : Confirmed by: Kirby Topete 23-Feb-2020 18:45:40
[2020-02-23] MEDS: FUROSEMIDE INJ/PF 40 MG/4 ML SDV IV SCH (21:11)
[2020-02-23] MEDS: METOPROLOL TARTRATE 25 MG TABLET PO SCH (21:11)
[2020-02-23] MEDS ORDERED: FUROSEMIDE INJ/PF 40 MG/4 ML SDV IV SCH (22:00)
[2020-02-23] MEDS ORDERED: DILTIAZEM HCL 120 MG CAP.SR.24H PO SCH (22:00)
[2020-02-24 04:44] LABS: ABSOLUTE BASOPHILS # (AUTO) 0.1 10^3/uL (0.0-0.2); ABSOLUTE EOSINOPHILS # (AUTO) 0.1 10^3/uL (0.0-0.6); ABSOLUTE LYMPHOCYTES (AUTO) 1.6 10^3/uL (0.5-4.7); ABSOLUTE MONOCYTES (AUTO) 0.4 10^3/uL (0.1-1.4); ABSOLUTE NEUT (AUTO) 3.7 10^3/uL (1.7-8.2); EOSINOPHILS % (AUTO) 1.3 % (0-6); HEMATOCRIT 33.5 % (37.9-51.0); HEMOGLOBIN 11.7 g/dL (13.5-17.0); LYMPHOCYTES % (AUTO) 27.1 % (13-45); MEAN CORPUSCULAR HEMOGLOBIN 29.3 pg (27.0-33.4); MEAN CORPUSCULAR HGB CONC 34.9 g/dL (32.0-36.0); MEAN CORPUSCULAR VOLUME 84 fl (80-97); MONOCYTES % (AUTO) 7.2 % (3-13); PLATELET COUNT 269 10^3/uL (150-450); RED BLOOD COUNT 3.99 10^6/uL (4.35-5.55); RED CELL DISTRIBUTION WIDTH 15.1 % (11.5-14.0); SEGMENTED NEUTROPHILS % (AUTO) 63.4 % (42-78); TOTAL CELLS COUNTED % (AUTO) 100 %; WHITE BLOOD COUNT 5.8 10^3/uL (4.0-10.5)
[2020-02-24 05:17] LABS: ANION GAP 6 (5-19); BLOOD UREA NITROGEN 27 mg/dL (7-20); CALCIUM 8.1 mg/dL (8.4-10.2); CARBON DIOXIDE 29 mmol/L (22-30); CHLORIDE 96 mmol/L (98-107); CHOLESTEROL 154.48 mg/dL (0-200); GLUCOSE 103 mg/dL (75-110); POTASSIUM 3.5 mmol/L (3.6-5.0); TRIGLYCERIDES 128 mg/dL (<150)
[2020-02-24 05:28] LABS: DIRECT LDL 98 mg/dL (<100)
[2020-02-24] MEDS ORDERED: LEVOTHYROXINE SODIUM 0.05 MG TABLET PO SCH (06:00)
[2020-02-24] MEDS: FUROSEMIDE INJ/PF 40 MG/4 ML SDV IV SCH (09:40)
[2020-02-24] MEDS: ENOXAPARIN SODIUM INJ 40 MG/0.4 ML DISP.SYRIN SUBCUT SCH (09:41)
[2020-02-24] MEDS: METOPROLOL TARTRATE 25 MG TABLET PO SCH (09:41)
--- NOTE | 2020-02-24 09:50 | XCELERA REPORT ---
[address] [address] Transthoracic Echocardiogram Report Name: PADMINI GHOSH Age: 75 yrs Gender: Male : 1945 Patient Status: Inpatient Patient Location: [address] [place] [address] Study Date: 02/23/2020 05:34 PM Height: 71 in Weight: 125 lb BSA: 1.7 m2 Procedure: A complete two-dimensional transthoracic echocardiogram was performed (2D, M-mode, spectral and color flow Doppler). Reason For Study: CHF Ordering Physician: ROME BROWNING Performed By: Roxi Combs Interpretation Summary LEFT VENTRICLE: LV Systolic function: LVEF is felt to be mildly depressed at approximately 50% %. LV Diastolic Function: Grade II diastolic dysfunction noted. Wall motion : basal inferolateral marked hypokinesia to akinesia noted. Left ventricular chamber size : is within normal limit. Left ventricular wall thickness : is increased indicative of mild to moderate LVH. RIGHT VENTRICLE: RV systolic function : is felt to be within normal limit. Right Ventricle Size : is within normal limits. LEFT ATRIUM size : moderately dilated. RIGHT ATRIUM size : mildly dilated. INTER ATRIAL SEPTUM : No definite atrial septal defect noted however a small PFO could be missed. AORTIC ROOT : seems to be within normal limits. Ascending aorta is not well visualized. INFERIOR VENA CAVA: normal size but diminished respiratory variation. VALVES: MITRAL VALVE : Leaflets are mildly thickened and calcified. Mobility seems to be within normal limits. Mitral Regurgitation : moderate mitral regurgitation is noted. Mitral Stenosis: No mitral stenosis noted. Mitral valve prolapse : none noted. AORTIC VALVE: seems trileaflet with mild to moderate thickening and calcification. With borderline reduced excursion. Aortic stenosis : probable mild aortic stenosis noted. Aortic regurgitation : mild aortic incompetence noted. TRICUSPID VALVE : mobility and structures within normal limit. Tricuspid stenosis : no tricuspid stenosis noted. Tricuspid regurgitation : mild to moderate tricuspid regurgitation noted. Estimated RVSP : approximately 50-60 mmHg consistent with moderate pulmonary hypertension . PULMONARY VALVE : was not well visualized but no significant abnormalities suspected. Pulmonary stenosis : no pulmonary stenosis noted. Pulmonary regurgitation : no significant pulmonary regurgitation noted. MASSES AND THROMBUS : No definite intracardiac thrombus or masses are noted. PERICARDIUM: No pericardial effusion was noted. IMPRESSION : 1. Mild depressed LVEF estimated at approximately 50%. 2. Mild to moderate LVH noted 3. Grade II [mild-moderate] Diastolic Dysfunction noted. 4. Moderate mitral, mild aortic, mild to moderate tricuspid regurgitation noted. 5. LA is moderately dilated. RA is mildly dilated. 6. RVSP estimated at 50-60 mmHg consistent with moderate pulmonary hypertension. MMode/2D Measurements & Calculations RVDd: 3.5 cm LVIDd: 5.7 cm FS: 16.9 % Ao root diam: 2.9 cm IVSd: 1.2 cm LVIDs: 4.7 cm EDV(Teich): 158.3 ml Ao root area: 6.7 cm2 LVPWd: 1.0 cm ESV(Teich): 103.1 ml LA dimension: 4.4 cm EF(Teich): 34.9 % Doppler Measurements & Calculations MV E max tad: MV P1/2t max tad: Ao V2 max: AI max tad: 129.0 cm/sec 144.3 cm/sec 154.5 cm/sec 258.9 cm/sec MV A max tad: MV P1/2t: 45.3 msec Ao max PG: AI max P.8 cm/sec MVA(P1/2t): 4.9 cm2 9.5 mmHg 26.8 mmHg MV E/A: 3.2 MV dec slope: AI dec slope: 130.2 cm/sec2 933.6 cm/sec2 AI P1/2t: MV dec time: 0.25 sec 582.5 msec LV V1 max PG: PA V2 max: TR max tad: AV P1/2t-pr_phl: 3.2 mmHg 80.2 cm/sec 367.8 cm/sec 582.5 msec LV V1 max: PA max P.6 mmHg TR max P.6 cm/sec 54.1 mmHg MV P1/2t-pr_phl: 45.3 msec : ROME BROWNING Shyamal
[2020-02-24] MEDS ORDERED: ASPIRIN 81 MG TABLET, CHEWABLE PO SCH (10:00)
[2020-02-24] MEDS ORDERED: MAGNESIUM OXIDE 400 MG TABLET PO SCH (10:00)
[2020-02-24] MEDS ORDERED: POTASSIUM CHLORIDE 20 MEQ PACKET PO SCH (10:00)
[2020-02-24] MEDS ORDERED: ONDANSETRON 4 MG TAB.RAPDIS PO PRN (13:00)
[2020-02-24] MEDS ORDERED: LISINOPRIL 10 MG TABLET PO SCH (13:00)
[2020-02-24] MEDS ORDERED: ONDANSETRON HCL INJ/PF 4 MG/2 ML SDV IV PRN (13:00)
[2020-02-24] MEDS ORDERED: DILTIAZEM HCL 60 MG TABLET PO ONE (13:00)
[2020-02-24 16:15] VITALS: BP 153/55
--- NOTE | 2020-02-24 16:34 | PDOC DISCHARGE SUMMARY ---
Impression - Admit/DC Date/PCP Admission Date/Primary Care Provider: 02/23/20 14:00 Discharge Date: 02/24/20 - Discharge Diagnosis (1) CHF exacerbation Is this a current diagnosis for this admission?: Yes (2) Hypertensive urgency Is this a current diagnosis for this admission?: Yes (3) Heroin abuse Is this a current diagnosis for this admission?: Yes (4) Carotid artery stenosis Is this a current diagnosis for this admission?: Yes (5) COPD (chronic obstructive pulmonary disease) Is this a current diagnosis for this admission?: Yes (6) Stage III chronic kidney disease Is this a current diagnosis for this admission?: Yes (7) Protein-calorie malnutrition, severe Is this a current diagnosis for this admission?: Yes (8) History of coronary artery bypass graft x 3 Is this a current diagnosis for this admission?: Yes (9) Hypertension Is this a current diagnosis for this admission?: Yes (10) Tobacco abuse Is this a current diagnosis for this admission?: Yes - Additional Information Resuscitation Status: Full Code Discharge Diet: Regular Discharge Activity: Activity As Tolerated, Balance Activity w/Rest, Weigh Daily Referrals: DEBORA PADRON MD [ACTIVE PROVISIONAL STAFF] - Prescriptions: Aspirin [Aspirin 81 mg Chewable Tablet] 81 mg PO DAILY #30 tab.chew Diltiazem HCl [Cardizem Cd 180 mg Capsule] 180 mg PO QHS #30 capsule.cr Clonidine HCl [Catapres 0.1 mg Tablet] 0.1 mg PO BIDP PRN #30 PRN Reason: SBP>160 DBP>100 Furosemide [Lasix 20 mg Tablet] 20 mg PO QAM #30 Metoprolol Tartrate [Lopressor 25 mg Tablet] 25 mg PO Q12 #30 tablet Magnesium Oxide [Mag-Ox 400 mg Tablet] 400 mg PO DAILY #30 tablet Clopidogrel Bisulfate [Plavix 75 mg Tablet] 75 mg PO DAILY #30 Potassium Chloride [Potassium Chloride 20 Meq Packet] 20 meq PO Q12 #60 packet Omeprazole Magnesium [Prilosec Otc] 20 mg PO DAILY #30 Lisinopril [Prinivil 10 mg Tablet] 10 mg PO DAILY #30 tablet Albuterol Sulfate [Proair HFA Inhalation Aerosol 8.5 gm MDI] 1 puff IH Q4HP PRN #1 PRN Reason: Shortness Of Breath Levothyroxine Sodium [Synthroid 0.05 mg Tablet] 0.05 mg PO Q6AM #30 tablet Home Medications: Albuterol Sulfate [Proair HFA Inhalation Aerosol 8.5 gm MDI] 1 puff IH Q4HP PRN #1 02/24/20 Aspirin [Aspirin 81 mg Chewable Tablet] 81 mg PO DAILY #30 tab.chew 02/24/20 Clonidine HCl [Catapres 0.1 mg Tablet] 0.1 mg PO BIDP PRN #30 02/24/20 Clopidogrel Bisulfate [Plavix 75 mg Tablet] 75 mg PO DAILY #30 02/24/20 Diltiazem HCl [Cardizem Cd 180 mg Capsule] 180 mg PO QHS #30 capsule.cr 02/24/20 Furosemide [Lasix 20 mg Tablet] 20 mg PO QAM #30 02/24/20 Levothyroxine Sodium [Synthroid 0.05 mg Tablet] 0.05 mg PO Q6AM #30 tablet 02/24/20 Lisinopril [Prinivil 10 mg Tablet] 10 mg PO DAILY #30 tablet 02/24/20 Magnesium Oxide [Mag-Ox 400 mg Tablet] 400 mg PO DAILY #30 tablet 02/24/20 Metoprolol Tartrate [Lopressor 25 mg Tablet] 25 mg PO Q12 #30 tablet 02/24/20 Omeprazole Magnesium [Prilosec Otc] 20 mg PO DAILY #30 02/24/20 Potassium Chloride [Potassium Chloride 20 Meq Packet] 20 meq PO Q12 #60 packet 02/24/20 History of Present Illiness History of Present Illness: PADMINI GHOSH is a 75 year old male with past medical history significant for CHF, CKD 3B, HTN, history of [place] status post CABG x3, tobacco abuse, heroin abuse last used Friday who presents with 1 day history of shortness of breath and generalized weakness, found to have markedly elevated blood pressures in the 240s over 100s at the [facility] and was sent to ED for further evaluation. He denies any chest pain, visual changes, abdominal pain, nausea/vomiting. He states he has stopped taking his medications for many months but he recently had a new PCP appointment that was canceled due to coronavirus. He was arrested 2 days ago for heroin use/possession among other things. He states he is also had a right carotid endarterectomy in the past and notes that he does not take Plavix anymore. BNP on admission is 53,000, chest x-ray showed central vascular congestion. For some reason he was given a 1 L normal saline bolus in the ER which probably made his blood pressure worse. He was then given a dose of Lasix. He is a very poor historian when it comes to his medications and does not remember the specific agents or the dose for the most part. Admitted to observation. Can probably go back to [facility]dc tomorrow. Patient is a long-term heroin addict who was fired by his methadone clinic last year due to his use of a fentanyl patch given to him by a friend. He last used heroin 2 days prior to admission and he would likely benefit from going back to the methadone clinic for treatment. Hospital Course Hospital Course: Patient admitted with hypertensive urgency and very mild CHF exacerbation. Started on IV Lasix and home cardiac medications restarted. He had been out of these medications for many months. Patient was arrested 2 days [employer] and had been using heroin at that time. On arrival to ED is essentially no longer in withdrawal. He was restarted on his home blood pressure medications and SBP came down to 150s at discharge. He did have some very mild borderline hypokalemia from the Lasix and he was started on potassium supplement. I recommend the fdc recheck his BMP in 1 week to make sure he does not need a decrease/increase in his potassium intake. Echocardiogram was done showed EF 50% with mild systolic dysfunction, mild diastolic dysfunction as well. Patient will need follow-up with PCP, cardiology, vascular surgery. (1) CHF exacerbation, mildresolved Qualifiers: Heart failure type: unspecified Qualified Code(s): I50.9 - Heart failure, unspecified Is this a current diagnosis for this admission?: Yes Plan: Not clinically volume overloaded on exam, short of breath on admission Chest x-ray showed central vascular congestion BNP 53,000, troponin minimally elevated likely due to CKD, denies chest pain Echocardiogram ordered IV Lasix transition to oral at discharge Restarted on beta-poonam, YARI inhibitor, aspirin, statin prior to discharge He did develop some mild borderline hypokalemia due to his Lasix and he was started on potassium supplement; recommend rechecking BMP in 1 week after discharge (2) Hypertensive urgencyresolved Is this a current diagnosis for this admission?: Yes Plan: Off all medications for many months We will restart home medications gradually to achieve a controlled drop in blood pressure over the next 24 hours Restarted Lasix, diltiazem, metoprolol (3) Heroin abuse Is this a current diagnosis for this admission?: Yes Plan: Arrested by police for drug possession and use and he is currently incarcerated Last time using heroin was 2 to 3 days [employer] Not in acute withdrawal Counseled on cessation, needs referral back to methadone clinic outpatient (4) Carotid artery stenosis Is this a current diagnosis for this admission?: Yes Plan: Status post right carotid endarterectomy at the same time he had his CABG Aspirin restarted Per patient he initially thought he did not take Plavix, but upon further consideration he states he does definitely take this medication outpatient, restarted Has not seen vascular surgery in quite a while, needs follow-up with them outpatient May want to consider looking for renal artery stenosis in the future if blood pressures refractory to multiple medications at high doses (5) COPD (chronic obstructive pulmonary disease) Is this a current diagnosis for this admission?: Yes Plan: Not in exacerbation Counseled on tobacco cessation As needed gregorio tay (6) Stage III chronic kidney disease Is this a current diagnosis for this admission?: Yes Plan: Baseline creatinine approximately 1.5-2, already at baseline on admission (7) Protein-calorie malnutrition, severe Is this a current diagnosis for this admission?: Yes Plan: Likely due to longstanding drug abuse (8) History of coronary artery bypass graft x 3 Is this a current diagnosis for this admission?: Yes (9) Hypertension Is this a current diagnosis for this admission?: Yes (10) Tobacco abuse Is this a current diagnosis for this admission?: Yes Physical Exam Vital Signs: Temp Pulse Resp BP Pulse Ox 98.4 F 54 L 18 176/72 H 94 02/24/20 16:12 02/24/20 16:12 02/24/20 16:12 02/24/20 16:12 02/24/20 16:12 Intake & Output 02/23/20 02/24/20 02/25/20 06:59 06:59 06:59 Intake Total 1000 500 Output Total 900 450 Balance 100 50 Weight 63.6 kg General appearance: PRESENT: no acute distress, well-developed, well-nourished Head exam: PRESENT: atraumatic, normocephalic Eye exam: PRESENT: conjunctiva pink Mouth exam: PRESENT: moist Respiratory exam: PRESENT: clear to auscultation jaime. ABSENT: rales, rhonchi, wheezes Cardiovascular exam: PRESENT: RRR. ABSENT: diastolic murmur, rubs, systolic murmur GI/Abdominal exam: PRESENT: normal bowel sounds, soft. ABSENT: distended, guarding, mass, organolmegaly, rebound, tenderness Rectal exam: PRESENT: deferred Extremities exam: ABSENT: pedal edema Musculoskeletal exam: PRESENT: ambulatory Neurological exam: PRESENT: alert, awake, oriented to person, oriented to place, oriented to time, oriented to situation Psychiatric exam: PRESENT: appropriate affect, normal mood Skin exam: PRESENT: dry, intact, warm Results Laboratory Results: WBC 5.8 10^3/uL (4.0-10.5) 02/24/20 04:12 RBC 3.99 10^6/uL (4.35-5.55) L 02/24/20 04:12 Hgb 11.7 g/dL (13.5-17.0) L 02/24/20 04:12 Hct 33.5 % (37.9-51.0) L 02/24/20 04:12 MCV 84 fl (80-97) 02/24/20 04:12 MCH 29.3 pg (27.0-33.4) 02/24/20 04:12 MCHC 34.9 g/dL (32.0-36.0) 02/24/20 04:12 RDW 15.1 % (11.5-14.0) H 02/24/20 04:12 Plt Count 269 10^3/uL (150-450) 02/24/20 04:12 Lymph % (Auto) 27.1 % (13-45) 02/24/20 04:12 [place] % (Auto) 7.2 % (3-13) 02/24/20 04:12 Eos % (Auto) 1.3 % (0-6) 02/24/20 04:12 Baso % (Auto) 1.0 % (0-2) 02/24/20 04:12 Absolute Neuts (auto) 3.7 10^3/uL (1.7-8.2) 02/24/20 04:12 Absolute Lymphs (auto) 1.6 10^3/uL (0.5-4.7) 02/24/20 04:12 Absolute Monos (auto) 0.4 10^3/uL (0.1-1.4) 02/24/20 04:12 Absolute Eos (auto) 0.1 10^3/uL (0.0-0.6) 02/24/20 04:12 Absolute Basos (auto) 0.1 10^3/uL (0.0-0.2) 02/24/20 04:12 Seg Neutrophils % 63.4 % (42-78) 02/24/20 04:12 Sodium 131.4 mmol/L (137-145) L 02/24/20 04:12 Potassium 3.5 mmol/L (3.6-5.0) L 02/24/20 04:12 Chloride 96 mmol/L (98-107) L 02/24/20 04:12 Carbon Dioxide 29 mmol/L (22-30) 02/24/20 04:12 Anion Gap 6 (5-19) 02/24/20 04:12 BUN 27 mg/dL (7-20) H 02/24/20 04:12 Creatinine 1.76 mg/dL (0.52-1.25) H 02/24/20 04:12 Est GFR ( Amer) 46 (>60) L 02/24/20 04:12 Est GFR (MDRD) Non-Af 38 (>60) L 02/24/20 04:12 Glucose 103 mg/dL (75-110) 02/24/20 04:12 Hemoglobin A1c % 5.8 % (4.7-6.0) 02/24/20 04:12 Calcium 8.1 mg/dL (8.4-10.2) L 02/24/20 04:12 Magnesium 1.6 mg/dL (1.6-2.3) 02/24/20 04:12 Total Bilirubin 0.8 mg/dL (0.2-1.3) 02/23/20 10:27 Direct Bilirubin 0.0 mg/dL (0.0-0.4) 02/23/20 10:27 Neonat Total Bilirubin Not Reportable 02/23/20 10:27 Neonat Direct Bilirubin Not Reportable 02/23/20 10:27 Neonat Indirect Bili Not Reportable 02/23/20 10:27 AST 32 U/L (17-59) 02/23/20 10:27 ALT 15 U/L (<50) 02/23/20 10:27 Alkaline Phosphatase 131 U/L (38-126) H 02/23/20 10:27 Troponin I 0.064 ng/mL 02/23/20 10:27 NT-Pro-B Natriuret Pep 69326 pg/mL (<125) H 02/23/20 10:27 Total Protein 7.3 g/dL (6.3-8.2) 02/23/20 10:27 Albumin 3.3 g/dL (3.5-5.0) L 02/23/20 10:27 Triglycerides 128 mg/dL (<150) 02/24/20 04:12 Cholesterol 154.48 mg/dL (0-200) 02/24/20 04:12 LDL Cholesterol Direct 98 mg/dL (<100) 02/24/20 04:12 VLDL Cholesterol 26.0 mg/dL (10-31) 02/24/20 04:12 HDL Cholesterol 43 mg/dL (>40) 02/24/20 04:12 TSH 1.55 uIU/mL (0.47-4.68) 02/23/20 10:27 Urine Color YELLOW 02/23/20 11:15 Urine Appearance CLEAR 02/23/20 11:15 Urine pH 7.0 (5.0-9.0) 02/23/20 11:15 Ur Specific [place] 1.010 02/23/20 11:15 Urine Protein >=500 mg/dL (NEGATIVE) H 02/23/20 11:15 Urine Glucose (UA) 50 mg/dL (NEGATIVE) H 02/23/20 11:15 Urine Ketones NEGATIVE mg/dL (NEGATIVE) 02/23/20 11:15 Urine Blood SMALL (NEGATIVE) H 02/23/20 11:15 Urine Nitrite NEGATIVE (NEGATIVE) 02/23/20 11:15 Urine Bilirubin NEGATIVE (NEGATIVE) 02/23/20 11:15 Urine Urobilinogen NEGATIVE mg/dL (<2.0) 02/23/20 11:15 Ur Leukocyte Esterase NEGATIVE (NEGATIVE) 02/23/20 11:15 Urine WBC (Auto) 0 /HPF 02/23/20 11:15 Urine RBC (Auto) 2 /HPF 02/23/20 11:15 Urine Mucus (Auto) RARE /LPF 02/23/20 11:15 Urine Ascorbic Acid NEGATIVE (NEGATIVE) 02/23/20 11:15 Salicylates < 1.0 mg/dL (2.0-20.0) L 02/23/20 10:27 Urine Opiates Screen NEGATIVE 02/23/20 11:15 Urine Methadone Screen NEGATIVE 02/23/20 11:15 Acetaminophen < 10 ug/mL (10-30) L 02/23/20 10:27 Ur Barbiturates Screen NEGATIVE 02/23/20 11:15 Ur Phencyclidine Scrn NEGATIVE 02/23/20 11:15 Ur Amphetamines Screen NEGATIVE 02/23/20 11:15 U Benzodiazepines Scrn NEGATIVE 02/23/20 11:15 Urine Cocaine Screen NEGATIVE 02/23/20 11:15 U Marijuana (THC) Screen NEGATIVE 02/23/20 11:15 Serum Alcohol < 10 mg/dL (NONE DETECTED) 02/23/20 10:27 02/23/20 10:27 Troponin I 0.064 NT-Pro-B Natriuret Pep [id number] H Impressions: Chest X-Ray 02/23/20 00:00 IMPRESSION: Stable chronic interstitial changes without evidence of acute cardiopulmonary process. Enlarged cardiac silhouette with central vascular congestion. Prior CABG. Plan Plan of Treatment: Follow-up PCP Follow-up with insurance claim approver Follow-up with vascular surgery Recheck BMP in 1 week Never use heroin again Stop smoking Time Spent: Greater than 30 Minutes Stroke Is this a Stroke Patient?: No Acute Heart Failure - Is this a Heart Failure Patient?: Yes Documentation of LVEF assessment?: Yes LVEF < 40%?: No- if no continue to question #3 3. Anticoagulant therapy for permanect/persistent/paraoxysmal Afib or Aflutter: N/A Follow-up Appointment scheduled within 7 days?: Yes
[2020-02-24] MEDS ORDERED: DILTIAZEM HCL 180 MG CAPSULE.CR PO SCH (22:00)
[2020-02-24] MEDS ORDERED: ATORVASTATIN CALCIUM 40 MG TABLET PO SCH (22:00)
[2020-02-24] MEDS ORDERED: FUROSEMIDE INJ/PF 20 MG/2 ML SDV IV SCH (22:00)
== END 2020-02-24 17:30 ==
LOC: ER 09:25 → EH 14:00 → 4S 15:50
PROVIDERS: ADMIT Internal Medicine; ATTEND Internal Medicine
DX: I16.0 Hypertensive urgency (principal); I13.0 Hypertensive heart and chronic kidney disease with heart failure and stage 1 through stage 4 chronic kidney disease, or unspecified chronic kidney disease; I50.9 Heart failure, unspecified; N18.3 Chronic kidney disease, stage 3 (moderate); F11.20 Opioid dependence, uncomplicated; J44.9 Chronic obstructive pulmonary disease, unspecified; E43 Unspecified severe protein-calorie malnutrition; I65.29 Occlusion and stenosis of unspecified carotid artery; F17.210 Nicotine dependence, cigarettes, uncomplicated; E87.6 Hypokalemia; T50.1X5A Adverse effect of loop [high-ceiling] diuretics, initial encounter; Y92.239 Unspecified place in hospital as the place of occurrence of the external cause; F19.10 Other psychoactive substance abuse, uncomplicated; G62.9 Polyneuropathy, unspecified; M79.10 Myalgia, unspecified site; I08.3 Combined rheumatic disorders of mitral, aortic and tricuspid valves; R19.7 Diarrhea, unspecified; I25.2 Old myocardial infarction; Z95.1 Presence of aortocoronary bypass graft; Z98.890 Other specified postprocedural states; Z91.14 Patient's other noncompliance with medication regimen
CPT/HCPCS: 93005; 99285; 96361; 96374; 36415; 80307 ×4; 83735; 84443; 85025 ×2; 80053; 81001; 84484; 83036; 80061; 83880; 93306; 71045; 93010; S0119; J1940 ×2; J1650 ×2; J2405; J7030; J3490; G0378

== ENCOUNTER → 2020-08-11 | Outpatient (CLI) | payer OTHER, MEDICARE ==
[2020-08-11 12:27] LABS: ABSOLUTE BASOPHILS # (AUTO) 0.1 10^3/uL (0.0-0.2); ABSOLUTE EOSINOPHILS # (AUTO) 0.5 10^3/uL (0.0-0.6); ABSOLUTE LYMPHOCYTES (AUTO) 2.3 10^3/uL (0.5-4.7); ABSOLUTE MONOCYTES (AUTO) 0.6 10^3/uL (0.1-1.4); ABSOLUTE NEUT (AUTO) 3.1 10^3/uL (1.7-8.2); BASOPHILS % (AUTO) 1.1 % (0-2); EOSINOPHILS % (AUTO) 7.1 % (0-6); HEMATOCRIT 31.7 % (37.9-51.0); HEMOGLOBIN 11.2 g/dL (13.5-17.0); LYMPHOCYTES % (AUTO) 35.3 % (13-45); MEAN CORPUSCULAR HEMOGLOBIN 32.1 pg (27.0-33.4); MEAN CORPUSCULAR HGB CONC 35.3 g/dL (32.0-36.0); MEAN CORPUSCULAR VOLUME 91 fl (80-97); MONOCYTES % (AUTO) 9.3 % (3-13); PLATELET COUNT 230 10^3/uL (150-450); RED BLOOD COUNT 3.48 10^6/uL (4.35-5.55); RED CELL DISTRIBUTION WIDTH 13.3 % (11.5-14.0); SEGMENTED NEUTROPHILS % (AUTO) 47.2 % (42-78); TOTAL CELLS COUNTED % (AUTO) 100 %; WHITE BLOOD COUNT 6.6 10^3/uL (4.0-10.5)
[2020-08-11 12:35] LABS: APPEARANCE,URINE CLEAR; BILIRUBIN,URINE NEGATIVE (NEGATIVE); COLOR,URINE YELLOW; GLUCOSE, URINE NEGATIVE (NEGATIVE); KETONES,URINE NEGATIVE (NEGATIVE); LEUKOCYTE ESTERASE,URINE NEGATIVE (NEGATIVE); NITRITE,URINE NEGATIVE (NEGATIVE); PROTEIN,URINE 100 mg/dL (NEGATIVE); URINE SPECIFIC GRAVITY 1.011; UROBILINOGEN,URINE NEGATIVE mg/dL (<2.0)
[2020-08-11 12:55] LABS: ALBUMIN 4.3 g/dL (3.5-5.0); ALKALINE PHOSPHATASE 70 U/L (38-126); ANION GAP 16 (5-19); ASPARTATE AMINO TRANSFERASE 34 U/L (17-59); BILIRUBIN,DIRECT 0.4 mg/dL (0.0-0.4); BILIRUBIN,TOTAL 0.5 mg/dL (0.2-1.3); BLOOD UREA NITROGEN 49 mg/dL (7-20); CALCIUM 9.2 mg/dL (8.4-10.2); CARBON DIOXIDE 22 mmol/L (22-30); CHLORIDE 101 mmol/L (98-107); POTASSIUM 4.9 mmol/L (3.6-5.0); TOTAL PROTEIN 7.8 g/dL (6.3-8.2)
[2020-08-11 13:13] LABS: GLUCOSE 67 mg/dL (75-110)
== END ==
LOC: OD 11:09
DX: R07.9 Chest pain, unspecified (principal)
CPT/HCPCS: 36415; 80053; 81001; 83036; 83880; 84443; 84484; 85025